=== PATIENT | male | born 1995 | race Caucasian/White ===

== ENCOUNTER 2016-09-24 03:20 | Emergency (ER) | payer OTHER ==
[~2016-09-24] VITALS: Ht 190.5 cm; Wt 82.0 kg
[2016-09-24 03:27] VITALS: BP 165/76; PULSE 57; RESP 16; TEMP 97.9; O2SAT 99
[2016-09-24] MEDS ORDERED: cloNIDine HCL 0.2 MG TAB PO ONE (03:30)
[2016-09-24] MEDS ORDERED: SODIUM CHLOR 0.9% 1000 ML INJ 1,000 ML IV SCH (03:37)
[2016-09-24] MEDS ORDERED: SODIUM CHLORIDE 0.9% FLUSH 10 ML FLUSH IVF PRN (03:45)
[2016-09-24] MEDS ORDERED: ceFAZolin 2 GM PREMIX 50 ML IV ONE (03:45)
[2016-09-24] MEDS ORDERED: DIPHTH/TETANUS/ACEL PERTUSSIS (BOOSTER) 0.5 ML VIAL/PFS IM ONE (03:45)
[2016-09-24 04:07] LABS: BASOPHIL # 0.1 TH/MM3 (0-0.2); BASOPHIL % 0.5 % (0.0-2.0); EOSINOPHIL # 0.2 TH/MM3 (0-0.4); EOSINOPHIL % 1.6 % (0.0-4.0); HEMO FLAGS DIFF FINAL; LYMPH % 38.7 % (9.0-44.0); LYMPHOCYTE # 4.4 TH/MM3 (1.0-4.8); MEAN CELL VOLUME 79.7 FL (80.0-100.0); MEAN CORPUSCULAR HEMOGLOBIN 27.5 PG (27.0-34.0); MEAN CORPUSCULAR HGB CONC 34.5 % (32.0-36.0); MONO % 6.7 % (0.0-8.0); NEUT % 52.5 % (16.0-70.0); PLATELET COUNT 209 TH/MM3 (150-450); RED BLOOD COUNT 5.64 MIL/MM3 (4.50-5.90); RED CELL DISTRIBUTION WIDTH 13.3 % (11.6-17.2); WHITE BLOOD COUNT 11.4 TH/MM3 (4.0-11.0)
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
[2016-09-24 04:22] LABS: APTT (PATIENT) 25.1 SEC (24.3-30.1); INTERNATIONAL NORMALIZED RATIO 0.9 RATIO; PROTHROMBIN TIME - PATIENT 10.3 SEC (9.8-11.6)
[2016-09-24] MEDS ORDERED: IOHEXOL 350 MG/ML 10 ML VIAL (for RAD DIAG) IV ONE (04:22)
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
[2016-09-24 04:27] VITALS: BP 129/62; PULSE 80; RESP 18; O2SAT 100
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
[2016-09-24 04:38] LABS: BICARBONATE 26.5 MEQ/L (21.0-32.0)
[2016-09-24 04:42] LABS: POTASSIUM 2.7 MEQ/L (3.5-5.1)
--- NOTE | 2016-09-24 05:00 | PD ---
Physical Exam Date Seen by Provider: Sep 24, 2016 Time Seen by Provider: 04:58 Narrative Skin: Patient has a 2 cm laceration to the left eyebrow. Data Data Last Documented VS Vital Signs Date Time Temp Pulse Resp B/P Pulse Ox O2 Delivery O2 Flow Rate FiO2 09/24/16 04:27 80 18 129/62 100 Room Air 09/24/16 03:27 97.9 Orders Clonidine (Catapres) (09/24/16 03:30) Basic Metabolic Panel (Bmp) (09/24/16 03:37) Complete Blood Count With Diff (09/24/16 03:37) Prothrombin Time / Inr (Pt) (09/24/16 03:37) Act Partial Throm Time (Ptt) (09/24/16 03:37) Type And Screen (09/24/16 03:37) Ct Brain W/O Iv Contrast(Rout) (09/24/16 03:37) Ct Cerv Spine W/O Contrast (09/24/16 03:37) Ct Abd/Pel W Iv Contrast(Rout) (09/24/16 03:37) Ct Thorax/ Chest W Iv Contrast (09/24/16 03:37) Ct Facial Bones W/O Iv Cont (09/24/16 03:37) Iv Access Insert/Monitor (09/24/16 03:37) Ecg Monitoring (09/24/16 03:37) Oximetry (09/24/16 03:37) Oxygen Administration (09/24/16 03:37) Cefazolin 2 Gm Premix (Ancef 2 Gm Premix (09/24/16 03:45) Vdfi-Clw-Vibwbo (Booster) Inj (Boostrix (09/24/16 03:45) Sodium Chlor 0.9% 1000 Ml Inj (Ns 1000 M (09/24/16 03:37) Sodium Chloride 0.9% Flush (Ns Flush) (09/24/16 03:45) Iohexol 350 Inj (Omnipaque 350 Inj) (09/24/16 04:22) Alcohol (Ethanol) (09/24/16 04:54) Labs Laboratory Tests Test 09/24/16 03:45 White Blood Count 11.4 TH/MM3 Red Blood Count 5.64 MIL/MM3 Hemoglobin 15.5 GM/DL Hematocrit 45.0 % Mean Corpuscular Volume 79.7 FL Mean Corpuscular Hemoglobin 27.5 PG Mean Corpuscular Hemoglobin 34.5 % Concent Red Cell Distribution Width 13.3 % Platelet Count 209 TH/MM3 Mean Platelet Volume 8.6 FL Neutrophils (%) (Auto) 52.5 % Lymphocytes (%) (Auto) 38.7 % Monocytes (%) (Auto) 6.7 % Eosinophils (%) (Auto) 1.6 % Basophils (%) (Auto) 0.5 % Neutrophils # (Auto) 6.0 TH/MM3 Lymphocytes # (Auto) 4.4 TH/MM3 Monocytes # (Auto) 0.8 TH/MM3 Eosinophils # (Auto) 0.2 TH/MM3 Basophils # (Auto) 0.1 TH/MM3 CBC Comment DIFF FINAL Differential Comment Prothrombin Time 10.3 SEC Prothromb Time International 0.9 RATIO Ratio Activated Partial 25.1 SEC Thromboplast Time Sodium Level 142 MEQ/L Potassium Level 2.7 MEQ/L Chloride Level 105 MEQ/L Carbon Dioxide Level 26.5 MEQ/L Anion Gap 11 MEQ/L Blood Urea Nitrogen 15 MG/DL Creatinine 1.02 MG/DL Estimat Glomerular Filtration 92 ML/MIN Rate Random Glucose 96 MG/DL Calcium Level 8.9 MG/DL [facility] Medical Record Reviewed: Yes Supervised Visit with MAKAYLA: Yes Interpretation(s) Last [address] 09/24/16336 Signed Impressions: Service Date/Time: Saturday, September 24, 2016 03:55 - CONCLUSION: 1. Left sided facial soft tissue swelling. 2. No facial fractures. Momo Beltre MD Head CT 09/24/16336 Signed Impressions: Service Date/Time: Saturday, September 24, 2016 03:55 - CONCLUSION: No acute intracranial disease. Momo Beltre MD Chest CT 09/24/16336 Signed Impressions: Service Date/Time: Saturday, September 24, 2016 04:03 - CONCLUSION: No acute thoracic injury. Momo Beltre MD Cervical Spine CT 09/24/16336 Signed Impressions: Service Date/Time: Saturday, September 24, 2016 03:55 - CONCLUSION: No fracture or subluxation. Momo Beltre MD Abdomen/Pelvis CT 09/24/16336 Signed Impressions: Service Date/Time: Saturday, September 24, 2016 04:03 - CONCLUSION: 1. No abdominal visceral injury Momo Beltre MD Differential Diagnosis MDM: High Differential diagnoses: Fracture, sprain, strain, dislocation, contusion, neurovascular injury Narrative Course Patient's laceration was closed with 5-0 plain gut Procedures Procedure Narrative LACERATION LOCATION: Left eyebrow LENGTH: 2 cm NUMBER OF STITCHES/RADHA: 6 REPAIR: The area of the laceration was prepped with Betadine and sterilely draped. The laceration was infiltrated with 1% lidocaine. The wound was copiously irrigated and explored without evidence of foreign body, tendon injury or neurovascular injury. The wound was closed using 5-0 plain gut. This was a simple single layer repair. Neosporin was applied. The patient was advised to keep the dressing clean and dry. Patient tolerated the procedure well. Scripts No Active Prescriptions or Reported Meds Ant Good Sep 24, 2016 05:00
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
[2016-09-24] MEDS: POTASSIUM CHLOR 10 MEQ PREMIX 100 ML IV SCH ×3 (06:13→10:24)
[2016-09-24 07:03] VITALS: O2SAT 99
[2016-09-24 07:13] VITALS: BP 101/55; PULSE 89; RESP 17; TEMP 97; O2SAT 98
[2016-09-24] MEDS ORDERED: BACI500O9 TOPICAL (11:39)
[2016-09-24] MEDS ORDERED: TYLE325T PO (11:39)
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
== END 2016-09-24 12:28 | disposition home or self-care (01) ==
LOC: NEPC 03:20
DX: S01.112A Laceration without foreign body of left eyelid and periocular area, initial encounter (principal); F10.129 Alcohol abuse with intoxication, unspecified; S00.81XA Abrasion of other part of head, initial encounter; E87.6 Hypokalemia; R55 Syncope and collapse; V03.19XA Pedestrian with other conveyance injured in collision with car, pick-up truck or van in traffic accident, initial encounter; Z23 Encounter for immunization
CPT/HCPCS: 12011; 70450; 70486; 71260; 72125; 74177; 80048; 80307; 85025; 85610; 85730; 86850; 86900; 86901; 90471; 90715; 96365; 96366; 96367; 99285; J0690; J3480; J7030; Q9967